=== PATIENT | female | born 1985 | race Caucasian/White ===

== ENCOUNTER 2019-04-05 10:07 | Inpatient (IN) | payer OTHER ==
[~2019-04-05] VITALS: Ht 167.6 cm; Wt 54.0 kg
--- NOTE | ~2019-04-05 | EKG ---
[place], [place] ELECTROCARDIOGRAM REPORT NAME: BRICE MARLOW UNIT #: [id number] ROOM: 522 DOCTOR: COLLINS DRAFT REPORT BIRTHDATE: [birth year] [facility] Test Date: 2019-04-05 Test Time: 15:09:17 Pat Name: BRICE MARLOW Department: Room: 522 1 Gender: F [employer] P[employer]: [place] RESP : 1985 Requested By: JADON SURESH Order Number: [id number] Reading MD: Kirsten Hubbard Measurements Intervals Kimberly Rate: 101 P: 57 VA: 128 QRS: 70 QRSD: 81 T: 30 QT: 329 QTc: 427 Interpretive Statements Sinus rhythm, possible sinus arrhythmia Compared to ECG 12/05/2018 14:47:43 Ectopic atrial rhythm no longer present Electronically Signed On 04-06-2019 4:34:45 PDT by Kirsten Hubbard CM:EKGRPT:ELECTROCARDIOGRAM REPORT [id number] JADON RUSSELL DRAFT REPORT JADON SURESH DO
[2019-04-05 10:07] VITALS: BP 121/95
[2019-04-05 10:27] LABS: BILIRUBIN NEGATIVE (NEGATIVE); BLOOD TRACE-INTACT (NEGATIVE); CLARITY CLEAR (CLEAR); COLOR YELLOW (YELLOW); GLUCOSE NEGATIVE (NEGATIVE); KETONE NEGATIVE (NEGATIVE); LEUKO ESTERASE TRACE (NEGATIVE); NITRITE NEGATIVE (NEGATIVE); UROBILINOGEN 0.2 E.U./dl (0.2-1.0)
[2019-04-05 10:34] LABS: URINE AMPHETAMINES < 1000 (1000ng/ml); URINE BARBITURATES < 200 (200ng/ml); URINE BENZODIAZEPINES > 200 (200ng/ml); URINE CANNABINOIDS (THC) > 50 (50ng/ml); URINE COCAINE > 300 (300ng/ml); URINE METHADONE < 300 (300ng/ml); URINE OPIATES > 300 (300ng/ml)
--- NOTE | 2019-04-05 10:35 | NUR ---
WHEN ASKED WHY PT IS OUT OF SUBOXONE THAT WAS FILLED 03/30/19, PT STATES "I HAVE BEEN SELLING THEM TO BUY HEROIN". PT TELLS ME HAS NOT TAKEN THEM FOR "MONTHS".
--- NOTE | 2019-04-05 10:35 | NUR ---
WHEN ASKED ABOUT WHY SHE IS OUT OF SUBOXONE THAT WAS FILLED 03/30/19, PT STATES "I HAVE BEEN SELLING THEM TO BUT HEROIN".
[2019-04-05 10:36] LABS: URINE PHENCYCLIDINE < 25 (25ng/ml)
[2019-04-05 10:36] LABS: BASO # 0.1 10*3/uL (0.0-0.1); BASO % 0.6 % (0.0-1.0); EOS % 0.1 % (1.0-4.0); HEMATOCRIT 41.3 % (37.0-47.0); LYMPH # 1.7 10*3/uL (1.3-4.4); LYMPH % 17.9 % (27.0-41.0); MEAN CORPUSCULAR HGB 28.6 pg (27.0-31.0); MEAN CORPUSCULAR HGB CONC 31.5 g/dl (33.0-37.0); MEAN PLATELET VOLUME 8.9 fl (9.6-12.3); MONO # 0.3 10*3/uL (0.1-1.0); MONO % 3.3 % (3.0-9.0); NEUT # 7.6 10*3/uL (2.3-7.9); NEUT % 77.7 % (47.0-73.0); PLATELET COUNT AUTOMATED 256 10*3/uL (130-400); RED BLOOD COUNT 4.54 10*6/uL (4.10-5.10); RED CELL DISTRI WIDTH 15.8 % (0-14.5); WHITE BLOOD COUNT 9.7 10*3/uL (4.8-10.8)
--- NOTE | 2019-04-05 10:40 | NUR ---
33 year old FEMALE admitted to room # 522 for stabilization. 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 Compliant with admission procedure. Patient denies any anxiety, but is unable to sit still, taps toes to floor continuously, looks about room, unable to focus eyes on nurse during interview. See assessment forms for additional information about patient status.
[2019-04-05 10:42] LABS: BACTERIA 2+; CALCIUM OXALATE CRYSTALS 1+; MUCOUS 1+; RBC 0-2 rbc/hpf (0-2)
[2019-04-05 10:48] LABS: ALBUMIN 4.1 gm/dl (3.1-4.5); ALKALINE PHOSPHATASE 97 U/L (45-117); BUN 8 mg/dl (7-24); CHLORIDE 107 mmol/L (98-107); CREATININE 0.64 mg/dL (0.55-1.02); POTASSIUM 3.9 mmol/L (3.5-5.1); SGOT/AST 13 IU/L (3-35); SGPT/ALT 17 U/L (12-78); SODIUM 141 mmol/L (136-145); TOTAL PROTEIN 8.5 gm/dL (6.4-8.2)
[2019-04-05 10:50] LABS: ETHYL ALCOHOL < 3.0 mg/dl (<3)
[2019-04-05] MEDS ORDERED: NEURONTIN100 MG PO (10:56)
[2019-04-05] MEDS ORDERED: VRAYLAR3 MG PO (10:57)
[2019-04-05] MEDS ORDERED: BUSPAR15 MG PO (10:57)
[2019-04-05] MEDS ORDERED: SUBOXONE 8 MG-1 EACH SL (10:57)
[2019-04-05] MEDS ORDERED: REQUIP0.25 M1 PO (10:58)
[2019-04-05 11:00] VITALS: BP 121/82
--- NOTE | 2019-04-05 11:29 | NUR ---
PATIENT WAS SEEN IN [place] STAFF OFFICE. PATIENT MEETS [facility]. CINA=15. PATIENT WANTS TO FOLLOW UP WITH THE [facility] FOR HER AFTERCARE PLAN. ASHU GUILLEN B.A. SUPERVISOR [employer]
[2019-04-05 12:00] VITALS: BP 121/82
--- NOTE | 2019-04-05 12:47 | NUR ---
PT MEDICATED WITH BENTYL, VISTARIL, AND REQUIP AT THIS TIME FOR COMPLAINTS OF AGITATION, STOMACH CRAMPS AND LEG ACHES. WILL MONITOR.
--- NOTE | 2019-04-05 15:32 | NUR ---
Discharge instructions reviewed with patient/family. Patient receptive and verbalizes understanding. Follow-up care arranged. Written instructions given to patient/family. PATIENT DISCHARGED AND AMBULATORY OFF FLOOR. PATIENT LEFT BEFORE ABLE TO SIGN PAPERS. [place]
== END 2019-04-05 15:32 | disposition home or self-care (01) | DRG 897 ==
LOC: ED 10:07 → EDHOLD 10:20 → 5E 10:20
PROVIDERS: Emergency Medicine; ADMIT Internal Medicine
DX: F11.23 Opioid dependence with withdrawal (principal); C50.912 Malignant neoplasm of unspecified site of left female breast; D72.810 Lymphocytopenia; D72.9 Disorder of white blood cells, unspecified; R82.71 Bacteriuria; F13.10 Sedative, hypnotic or anxiolytic abuse, uncomplicated; F14.10 Cocaine abuse, uncomplicated; F41.9 Anxiety disorder, unspecified; F12.10 Cannabis abuse, uncomplicated; R00.0 Tachycardia, unspecified; Z72.0 Tobacco use; Z71.6 Tobacco abuse counseling; Z87.440 Personal history of urinary (tract) infections; Z81.1 Family history of alcohol abuse and dependence; Z80.3 Family history of malignant neoplasm of breast; Z79.899 Other long term (current) drug therapy